=== PATIENT | male | born 1990 | race Caucasian/White ===

== ENCOUNTER → 2017-11-15 15:06 | Outpatient (CLI) | payer OTHER, SELFPAY ==
--- NOTE | 2017-11-15 15:23 | XR_ITS ---
EXAM: XR lumbar spine min 4V HISTORY: Low back pain ITS.REASON: THORACIC AND MIDLINE BACK PAIN ORDERING PHYSICIAN: Jody Martinez PATIENT AGE: 27 years COMPARISON: None FINDINGS: Normal alignment. No fracture or dislocation. No lytic or blastic change. No significant degenerative change. The disc spaces are preserved. IMPRESSION: Negative lumbar spine
--- NOTE | 2017-11-15 15:23 | XR_ITS ---
EXAM: XR thoracic spine 3V HISTORY: ITS.REASON: THORACIC PAIN,MIDLINE LOW BACK PAIN COMPARISON: None FINDINGS: Normal alignment. No fracture or dislocation. No lytic or blastic change. No significant degenerative change. The disc spaces are preserved. IMPRESSION: Negative thoracic spine, no acute finding
== END ==
PROVIDERS: PCP Internal Medicine Adolescent Medicine; Visit Provider Nurse Practitioner Family
DX: M54.6 Pain in thoracic spine (principal); M54.5 Low back pain
CPT/HCPCS: 72072; 72110